=== PATIENT | male | born 1965 | race Caucasian/White ===

== ENCOUNTER 2019-04-14 14:12 | Emergency (ER) | payer MEDICARE, MEDICAID ==
[~2019-04-14] VITALS: Ht 165.1 cm; Wt 76.2 kg
--- NOTE | 2019-04-14 14:16 | NUR ---
PT BIBRA FROM THE STREETS FOR BIZARRE BEHAVIOR, RUNNING THROUGH TRAFFIC, PT VERBALLY RESPONSIVE, PT ON MONITOR, VSS, NAD NOTED, PT TO BED 12. PENDING MD BERRY
[2019-04-14] MEDS ORDERED: LORAZEPAM INJ 2 MG/ML VIAL ONE ×4 (14:29→17:16)
[2019-04-14] MEDS ORDERED: OLANZAPINE 10 MG VIAL IM ONE ×2 (14:29→14:30)
[2019-04-14] MEDS ORDERED: LORAZEPAM INJ 2 MG/ML VIAL IM ONE ×3 (14:30→17:00)
[2019-04-14 14:55] LABS: BASOPHILS % (AUTO) 0.2 % (0.0-2.0); HEMATOCRIT 42 % (39-51); HEMOGLOBIN 14.5 g/dL (13.5-17.5); LYMPHOCYTES # (AUTO) 1.5 /CMM (0.8-4.8); LYMPHOCYTES % (AUTO) 10.2 % (20.0-44.0); MEAN CORPUSCULAR HGB CONC 34 g/dl (31.0-36.0); MEAN CORPUSCULAR VOLUME 90 fL (80-96); MONOCYTES # (AUTO) 1.3 /CMM (0.1-1.30); MONOCYTES % (AUTO) 9.5 % (2.0-12.0); NEUTROPHILS # (AUTO) 11.2 /CMM (1.8-8.9); NEUTROPHILS % (AUTO) 79.1 % (43.0-81.0); PLATELET COUNT (AUTO) 204 /CMM (150-450); RED BLOOD CELL COUNT(AUTO) 4.68 MIL/uL (4.5-6.0); WHITE BLOOD COUNT (AUTO) 14.2 K/uL (4.3-11.0)
[2019-04-14 14:59] LABS: CALCIUM, SERUM 8.5 mg/dL (8.5-10.1); CARBON DIOXIDE 24 mmol/L (21-32); CHLORIDE 101 mmol/L (98-107); CREATININE 1.1 mg/dL (0.6-1.3); GLUCOSE 91 mg/dL (74-106); POTASSIUM 3.7 mmol/L (3.5-5.1); SODIUM SERUM 137 mmol/L (136-145); UREA NITROGEN, BLOOD 18 mg/dL (7-18)
[2019-04-14 15:06] LABS: ALANINE AMINOTRANSFERASE 95 U/L (12-78); ALCOHOL, BLOOD < 3 mg/dL (0-0); ALKALINE PHOSPHATASE 103 U/L (46-116); ASPARTATE AMINOTRANSFERASE 170 U/L (15-37); BILIRUBIN,DIRECT 0.4 mg/dL (0.0-0.2); BILIRUBIN,TOTAL 1.7 mg/dL (0.2-1.0); TOTAL PROTEIN, SERUM 7.5 g/dL (6.4-8.2)
[2019-04-14 15:08] LABS: ACETAMINOPHEN 0 ug/ml (10-30); SALICYLATE 2.4 mg/dL (2.8-20.0)
[2019-04-14 16:49] LABS: APPEARANCE,URINE Clear (CLEAR); BILIRUBIN,URINE SMALL (NEGATIVE); BLOOD, URINE Trace-intact Ery/uL (NEGATIVE); COLOR,URINE Dark (YELLOW); KETONES,URINE 40 (NEGATIVE); LEUKOCYTE ESTERASE ,URINE Negative (NEGATIVE); NITRITE, URINE Negative (NEGATIVE); PROTEIN,URINE 30 mg/dl (NEGATIVE); UGLUCOSE Negative (NEGATIVE); UROBILINOGEN,URINE 0.2 EU/dL (0.2)
[2019-04-14 17:01] LABS: BACTERIA,URINE Few /HPF (None Seen); SQUAMOUS EPITHELIAL CELL,UR Few /HPF (None Seen); WBC,URINE 0-2 /HPF (0-3)
[2019-04-14 17:02] LABS: MUCUS,URINE Few /LPF (None Seen)
--- NOTE | 2019-04-14 17:15 | NUR ---
PIV STARTED PER DR MIXON'S ORDER AND TO GIVEN ATIVAN IVP
[2019-04-14] MEDS ORDERED: LORAZEPAM INJ 2 MG/ML VIAL IV ONE (17:30)
--- NOTE | 2019-04-14 22:44 | NUR ---
Patient is resting comfortably in bed with eyes closed. Easily aroused. VSS
[2019-04-15] MEDS ORDERED: LORAZEPAM INJ 2 MG/ML VIAL ONE (00:05)
--- NOTE | 2019-04-15 00:12 | NUR ---
Pt medicated as ordered for continued restlessness, agitated, having verbal outbursts, unable to lie still, unable to follow commands, unable to account for own safety, attempts to reorient patient, unsuccessful. pt on continuous O2, pulse-ox w/ cardiac monitoring, bed low to ground w/ siderails up for own safety. Will continue to monitor.
[2019-04-15] MEDS ORDERED: HALOPERIDOL LACTATE INJ 5 MG/ML VIAL ONE ×2 (00:20→03:00)
--- NOTE | 2019-04-15 00:28 | NUR ---
Pt continues to be restless, agitated s/p ativan given, unable to account for own safety. Medicated as ordered for haldol, on continuous O2, pulse-ox w/ cardiac monitoring.
[2019-04-15] MEDS ORDERED: LORAZEPAM INJ 2 MG/ML VIAL IV ONE (00:30)
[2019-04-15] MEDS ORDERED: HALOPERIDOL LACTATE INJ 5 MG/ML VIAL IV ONE ×2 (00:30→02:30)
--- NOTE | 2019-04-15 00:50 | NUR ---
pt asleep in bed w/ resp even & unlabored, on 2 l/min O2 via NC w/ nad noted. On continuous cardiac monitoring.
--- NOTE | 2019-04-15 02:40 | NUR ---
pt falling in and out of sleep w/ resp even & unlabored, on continuous cardiac monitoring.
--- NOTE | 2019-04-15 03:01 | NUR ---
pt awake, restless, agitated, unable account for own safety, unable to lie still. Medicated as ordered for increasing agitation.
--- NOTE | 2019-04-15 03:30 | NUR ---
pt continues to sleep w/ nad noted, on continuous cardiac monitoring, bed low to ground w/ siderails up.
--- NOTE | 2019-04-15 04:16 | NUR ---
Pt continues to sleep, on continuous pulse-ox w/ cardiac monitoring.
--- NOTE | 2019-04-15 05:23 | NUR ---
KRISHNA Madsen at bedside for psych eval.
--- NOTE | 2019-04-15 05:51 | NUR ---
RECEIVED INFO FROM PT AND TRIED TO CALL YENIFER AT [facility] [address]
--- NOTE | 2019-04-15 07:46 | NUR ---
PT YELLING AND SCREAMING STATES HE WANTS TO GO WHEN ASKED WHERE PT STATED THAT HE DID NOT KNOW PLAN OF CARE EXPLAINED TO PT AND NOW WANTS TO GO VOLUNTARY TO PSYCH FACILITY WILL CALL FOR REPORT.
--- NOTE | 2019-04-15 08:31 | NUR ---
TRIED TO CALL YENIFER AT [facility] [address] LEFT MESSAGE TO CALL LYNN CHAPPELL
--- NOTE | 2019-04-15 09:11 | NUR ---
PT UP ON MINTOR CALM COPPERATIVE GIVEN MEAL TRAY
[2019-04-15 09:24] VITALS: BP 133/46
--- NOTE | 2019-04-15 09:25 | NUR ---
PT SIGNED [facility] GIVEN RESOURCES WANTS TO GO HOME TOLD TO FOLLOW WITH [facility] PT APPROPRIATELY CLOTHED WALKING WITH STEADY GAIT. PT ON VOLUNTARY HOLD AWARE
== END 2019-04-15 09:28 | disposition home or self-care (01) ==
LOC: ER 14:15
DX: R45.851 Suicidal ideations (principal); F15.10 Other stimulant abuse, uncomplicated; F41.9 Anxiety disorder, unspecified; R45.1 Restlessness and agitation; F31.9 Bipolar disorder, unspecified; F17.200 Nicotine dependence, unspecified, uncomplicated; R00.0 Tachycardia, unspecified; Z71.6 Tobacco abuse counseling; Z88.8 Allergy status to other drugs, medicaments and biological substances
CPT/HCPCS: 36415; 80048; 80076; 80305; 80307; 81001; 85025; 96372 ×4; 96374; 96375; 96376; 99284; 99406; G0480; J1630 ×2; J2060 ×5; J3490; 81000-TC

== ENCOUNTER 2020-05-20 21:37 | Emergency (ER) | payer MEDICARE, OTHER ==
[~2020-05-20] VITALS: Ht 165.1 cm; Wt 70.3 kg
[2020-05-20] MEDS ORDERED: OLANZAPINE 5 MG TABLET PO ONE (23:30)
[2020-05-20 23:38] LABS: BASOPHILS % (AUTO) 0.3 % (0.0-2.0); EOSINOPHILS % (AUTO) 1.3 % (0.0-6.0); HEMATOCRIT 43 % (39-51); HEMOGLOBIN 14.7 g/dL (13.5-17.5); LYMPHOCYTES # (AUTO) 1.5 /CMM (0.8-4.8); MEAN CORPUSCULAR HGB CONC 34 g/dl (31.0-36.0); MEAN CORPUSCULAR VOLUME 91 fL (80-96); MONOCYTES % (AUTO) 10.3 % (2.0-12.0); NEUTROPHILS # (AUTO) 7.1 /CMM (1.8-8.9); NEUTROPHILS % (AUTO) 73.1 % (43.0-81.0); PLATELET COUNT (AUTO) 221 /CMM (150-450); RED BLOOD CELL COUNT(AUTO) 4.73 MIL/uL (4.5-6.0); WHITE BLOOD COUNT (AUTO) 9.7 K/uL (4.3-11.0)
[2020-05-21 00:18] LABS: ALANINE AMINOTRANSFERASE 24 U/L (12-78); ALBUMIN 4.4 g/dL (3.4-5.0); ALKALINE PHOSPHATASE 88 U/L (46-116); ASPARTATE AMINOTRANSFERASE 31 U/L (15-37); BILIRUBIN,DIRECT 0.3 mg/dL (0.0-0.2); BILIRUBIN,TOTAL 1.5 mg/dL (0.2-1.0); CALCIUM, SERUM 9.1 mg/dL (8.5-10.1); CARBON DIOXIDE 30 mmol/L (21-32); CHLORIDE 102 mmol/L (98-107); CREATININE 1.1 mg/dL (0.6-1.3); GLUCOSE 77 mg/dL (74-106); POTASSIUM 3.5 mmol/L (3.5-5.1); SODIUM SERUM 139 mmol/L (136-145); TOTAL PROTEIN, SERUM 8.2 g/dL (6.4-8.2); UREA NITROGEN, BLOOD 20 mg/dL (7-18)
--- NOTE | 2020-05-21 00:20 | NUR ---
PATIENT BIB SELF C/O SI TO JUMP INTO TRAFFIC. PATIENT IS AAOX3. NO SOB. BREATHING EVENLY AND UNLABORED ON ROOM AIR. CONNECTED TO MONITOR. CHANGED INTO GOWN, BELONGINGS MOVED INTO SAFE LOCKER. SITTER AT BEDSIDE.
--- NOTE | 2020-05-21 00:32 | NUR ---
PT UNABLE TO PROVIDE URINE SAMPLE AT THIS TIME. MD MELO
[2020-05-21] MEDS ORDERED: OLANZAPINE 5 MG TABLET ONE (00:38)
[2020-05-21 00:47] LABS: SALICYLATE 1.3 mg/dL (2.8-20.0)
[2020-05-21 00:48] LABS: ACETAMINOPHEN < 2 ug/ml (10-30); ALCOHOL, BLOOD < 3 mg/dL (0-0)
--- NOTE | 2020-05-21 01:33 | NUR ---
PT RESTING COMFORTABLY IN BED. VSS. NO ACUTE DISTRESS NOTED. WILL CONTINUE TO MONITOR FOR SAFETY
[2020-05-21 01:38] LABS: APPEARANCE,URINE Clear (CLEAR); BILIRUBIN,URINE Negative (NEGATIVE); BLOOD, URINE Negative Ery/uL (NEGATIVE); COLOR,URINE Yellow (YELLOW); KETONES,URINE 40 (NEGATIVE); LEUKOCYTE ESTERASE ,URINE Negative (NEGATIVE); NITRITE, URINE Negative (NEGATIVE); PROTEIN,URINE Negative (NEGATIVE); UGLUCOSE Negative (NEGATIVE); UROBILINOGEN,URINE 0.2 EU/dL (0.2)
[2020-05-21 01:54] LABS: RBC,URINE 0-2 /HPF (0-2); WBC,URINE 0-2 /HPF (0-3)
[2020-05-21 01:55] LABS: BACTERIA,URINE None seen /HPF (None Seen); MUCUS,URINE Many /LPF (None Seen); SQUAMOUS EPITHELIAL CELL,UR Few /HPF (None Seen)
--- NOTE | 2020-05-21 02:58 | NUR ---
PT RESTING COMFORTABLY IN BED. VITAL SIGNS STABLE. NO ACUTE DISTRESS NOTED AT THIS TIME. SITTER AT BEDSIDE, WILL CONTINUE TO MONITOR
--- NOTE | 2020-05-21 03:42 | NUR ---
PT ASLEEP IN BED. VSS. NO ACUTE DISTRESS NOTED. WILL CONTINUE TO MONITOR FOR SAFETY
--- NOTE | 2020-05-21 03:48 | NUR ---
TRANSFER INFORMATION: PT ACCEPTED TO [facility] ACCEPTING MD: DR. BUCHANAN NUMBER FOR REPORT: [phone] (UNIT 2)
--- NOTE | 2020-05-21 03:49 | NUR ---
CALLED [facility] ETA 07
--- NOTE | 2020-05-21 03:55 | NUR ---
CALLED [facility], NO AMBULANCE AVAILABLE AT THIS TIME
--- NOTE | 2020-05-21 05:17 | NUR ---
Laureano corrigan in [facility] - 05/21/20 at 0525 by JOSH REPORT GIVEN TO HERMAN JAMES FOR JORDY
--- NOTE | 2020-05-21 05:17 | NUR ---
REPORT GIVEN TO HERMAN JAMES [facility] FOR [facility]
--- NOTE | 2020-05-21 05:25 | NUR ---
PT RESTING COMFORTABLY IN BED. VITAL SIGNS STABLE. NO ACUTE DISTRESS NOTED AT THIS TIME. SITTER AT BEDSIDE, WILL CONTINUE TO MONITOR
--- NOTE | 2020-05-21 07:14 | NUR ---
REPORT GIVEN TO [facility] FOR TRANSPORTATION JORDY. PT TRANSFERRED TO [facility] IN STABLE CONDITION
[2020-05-21 07:15] VITALS: BP 131/79
== END 2020-05-21 07:16 ==
LOC: ER 21:42
DX: R45.851 Suicidal ideations (principal); F42.9 Obsessive-compulsive disorder, unspecified; Z88.8 Allergy status to other drugs, medicaments and biological substances; Z59.0 Homelessness
CPT/HCPCS: 36415; 80048; 80076; 80305; 80307; 80329; 81001; 85025; 99285; G0480; 81000-TC